=== PATIENT | female | born 1985 | race Caucasian/White ===

== ENCOUNTER 2018-02-02 20:21 | Emergency (ER) | payer MEDICAID ==
[2016-07-08 13:58] VITALS: BMI 28.4
--- NOTE | 2018-02-02 22:24 | OBHP ---
Datetime: 02/02/2018 21:19 IP Adm Impression: Term, intrauterine Admit Comment, IP Provider: 32 yo with IUP at 40+6 weeks gestational age presented to [facility] with complaints of uterine contractions/discomfort. States contractions started about 2 hrs ago, 5 mi n apart. Denies vag bleeding, loss of fluid, reports good movement. ROS: denies headache, dizziness, blurry vision, chest pain, dyspnea, vomiting, burning with urinat ion. States she had diarrhea earlier today. care: Alexsander Dawkins, has appt on Monday 02/05 to see if she will be induced Does not have records with her, lives in [place] and was visiting mother in [place] when ctx started. OBGYNhx: 3 prior full term NVD (2008, 2012, 2014). 1 TOP, 2 SAB. PMH: denies chronic medical problems Soc hx: denies tobacco alcohol drug use Fam hx: mother diabetes 2 Allergies: nkda Meds: PNV SVE: closed, thick, long FHR 130s, reactive A: 32 yo at 40+ weeks, no signs of active labor at this time. Addendum by Dr. Armstrong: patient evaluated independently and I agree with the abov Extremities - PN: Normal Abdomen - PN: Normal Back - PN: Normal Breast - PN: Not Done Lungs - PN: Normal Heart - PN: Normal Thyroid - PN: Not Done Neurologic - PN: Normal HEENT - PN: Normal General - PN: Normal EGA AdmitDate IP: 40.6 Vital Signs Provider: Reviewed; Within Normal Limits IP Chief Complaint: Uterine contractions Dilatation, Provider: 0 Effacement, Provider: thick Station, Provider: high Genitourinary Exam: Normal
--- NOTE | 2018-02-02 22:26 | OBDCSUM ---
Datetime: 02/02/2018 21:31 Discharged to, Provider: Home Follow up at, Provider: Alexsander Dawkins Disch Instr Activity: Normal activity Disch Instr Diet: Regular Discharge Instructions, Provider: Routine instructions given Discharge Time: 02/02/2018 21:31 Follow up in weeks, Provider: 02/05/2018 Disch Referrals: None Contraception discussed, Prov: Yes Discharge Diagnosis Prov Other: false labor
[2018-02-03 01:36] VITALS: BP 115/69; PULSE 79
== END 2018-02-02 21:31 | disposition home or self-care (01) ==
LOC: H.EROB2 20:21
DX: O47.1 False labor at or after 37 completed weeks of gestation (principal); O48.0 Post-term pregnancy; Z3A.40 40 weeks gestation of pregnancy; O26.93 Pregnancy related conditions, unspecified, third trimester; R10.2 Pelvic and perineal pain

== ENCOUNTER 2018-05-06 20:32 | Emergency (ER) | payer SELFPAY ==
[2018-05-06 20:32] VITALS: BMI 29.7
[2018-05-06 20:42] VITALS: RESP 18
--- NOTE | 2018-05-06 21:01 | ED PDOC ---
Upper Extremity Pain/Injury Time Seen by Provider: 05/06/18 20:49 Chief Complaint (Nursing): Finger,Hand,&Wrist Chief Complaint (Provider): Right Wrist Pain History Per: Patient History/Exam Limitations: no limitations Onset/Duration Of Symptoms: Days (x2 weeks), Worse Since (x3 days ago) Current Symptoms Are (Timing): Still Present Additional Complaint(s): 32 year old female presents to the ED for evaluation of right wrist pain. Patient states that two weeks ago she tripped and fell onto her outstretched right hand, but the pain slowly improved. She then notes that three days ago she accidentally struck her right wrist on a sliding door, and has had worsening pain there since. Otherwise, denies numbness and tingling. PMD: none provided Past Medical History Reviewed: Historical Data, Nursing Documentation, Vital Signs Vital Signs: Last Vital Signs Temp 99.1 F 05/06/18 20:40 Pulse 70 05/06/18 20:40 Resp 18 05/06/18 20:40 BP 120/75 05/06/18 20:40 Pulse Ox 99 05/06/18 20:40 - Medical History PMH: No Chronic Diseases - Surgical History Surgical History: No Surg Hx - Family History Family History: States: Unknown Family Hx - Living Arrangements Living Arrangements: With Family - Social History Current smoker - smoking cessation education provided: No Alcohol: None Drugs: Denies - Immunization History Hx Tetanus Toxoid Vaccination: No Hx Influenza Vaccination: No Hx Pneumococcal Vaccination: No - Home Medications Home Medications: Ambulatory Orders Medication Instructions Recorded Acetaminophen [Tylenol 325mg tab] 325 mg PO PRN PRN 07/08/16 Cephalexin [cephalexin] 500 mg PO Q6 #28 cap 07/08/16 Ibuprofen [Motrin] 600 mg PO Q6 #30 tab 07/08/16 Sulfamethoxazole/Trimethoprim 1 tab PO Q12 #14 tab 07/08/16 [Bactrim DS 800 mg-160 mg] Benzocaine/Menthol ASSISTED [Dermoplast 60 ml EXT PRN PRN #1 aero 02/25/18 20%-0.5%] Ferrous Sulfate 325 mg PO BID #60 tablet 02/25/18 Ibuprofen [Motrin Ib] 600 mg PO Q6 PRN 14 Days #30 02/25/18 tablet NS - Allergies Allergies/Adverse Reactions: Allergies Allergy/AdvReac Type Severity Reaction Status Date / Time No Known Allergies Allergy Verified 07/13/15 16:16 Review of Systems ROS Statement: Except As Marked, All Systems Reviewed And Found Negative Musculoskeletal: Positive for: Other (right wrist pain) Neurological: Negative for: Numbness (or tingling) Physical Exam - Reviewed Nursing Documentation Reviewed: Yes Vital Signs Reviewed: Yes - Physical Exam Appears: Positive for: No Acute Distress Skin: Positive for: Normal Color, Warm, Dry Pulses-Radial (L): 2+ Pulses-Radial (R): 2+ Extremity: Positive for: Tenderness (minimal dorsal tenderness to right wrist), Capillary Refill (less than 2 seconds). Negative for: Normal ROM (limited secondary to pain), Deformity, Swelling - ECG O2 Sat by Pulse Oximetry: 99 (RA) Pulse Ox Interpretation: Normal Medical Decision Making Medical Decision Making: Time: 2052 Initial Impression: right wrist pain Initial Plan: --Tylenol 975 mg PO --XR right wrist Wrist wrapped in velcro splint by MAY. Scribe Attestation: Documented by Rachael Delarosa acting as a scribe for Matt Jackson PA-C. Provider Scribe Attestation: All medical record entries made by the Scribe were at my direction and personally dictated by me. I have reviewed the chart and agree that the record accurately reflects my personal performance of the history, physical exam, medical decision making, and the department course for this patient. I have also personally directed, reviewed, and agree with the discharge instructions and disposition. Disposition - Clinical Impression Clinical Impression: Wrist sprain - Patient ED Disposition Is Patient to be Admitted: No - Disposition Referrals: Mariza Hudson MD [Staff Provider] - Andrew Matias MD [Medical Doctor] - Disposition: Routine/Home Disposition Time: 21:20 Condition: STABLE Additional Instructions: RANDI FERNANDO, thank you for letting us take care of you today. Your provider was Mary Lane MD and you were treated for RT WRIST PAIN. The emergency medical care you received today was directed at your acute symptoms. If you were prescribed any medication, please fill it and take as directed. It may take several days for your symptoms to resolve. Return to the Emergency Department if your symptoms worsen, do not improve, or if you have any other problems. Please contact your doctor or call one of the physicians/clinics you have been referred to that are listed on the Patient Visit Information form that is included in your discharge packet. Bring any paperwork you were given at discharge with you along with any medications you are taking to your follow up visit. Our treatment cannot replace ongoing medical care by a primary care provider outside of the emergency department. Thank you for allowing the [facility] team to be part of your care today. If you had an X-Ray or CT scan: A Radiologist will review the ED reading if any change in treatment is needed we will contact you. If you had a blood, urine, or wound culture: It will take several days for the results, if any change in treatment is needed we will contact you. If you had an STI test: It will take 48 hours for the results. Please call after 1 week if you have not heard back. Instructions: Wrist Sprain (DC) Forms: [facility] (Armenian) Print Language: GREENLANDIC
[2018-05-06 21:39] VITALS: BP 118/75; PULSE 78; TEMP 98
--- NOTE | 2018-05-07 09:14 | RAD ---
Date of service: 05/06/2018 PROCEDURE: Right Wrist Radiographs. HISTORY: trauma COMPARISON: None. FINDINGS: BONES: No acute fracture or destructive bony lesion identified. JOINTS: Normal. No dislocation. SOFT TISSUES: Normal. OTHER FINDINGS: None. IMPRESSION: Unremarkable right wrist radiographs.
[2018-05-07 12:50] VITALS: O2SAT 99
== END 2018-05-06 21:37 | disposition home or self-care (01) ==
LOC: H.ER 20:32
DX: S63.501A Unspecified sprain of right wrist, initial encounter (principal); W19.XXXA Unspecified fall, initial encounter; Y92.89 Other specified places as the place of occurrence of the external cause

== ENCOUNTER 2018-09-03 23:10 | Emergency (ER) | payer MEDICAID ==
[2018-09-03 23:10] VITALS: BMI 29.7
[2018-09-03 23:17] VITALS: BP 131/81; PULSE 76; RESP 18; TEMP 98.3; O2SAT 99
--- NOTE | 2018-09-03 23:36 | ED PDOC ---
HPI: CCC, URI, Sore Throat Time Seen by Provider: 09/03/18 23:30 Chief Complaint (Nursing): ENT Problem Chief Complaint (Provider): bilateral ear pain History Per: Patient (32 y/o female here with bilateral ear pain worsening after using over the counter ear drops. Denies any swimming. Denies any fevers/chills.) Past Medical History Reviewed: Historical Data, Nursing Documentation, Vital Signs Vital Signs: Last Vital Signs Temp 98.3 F 09/03/18 23:15 Pulse 76 09/03/18 23:15 Resp 18 09/03/18 23:15 BP 131/81 09/03/18 23:15 Pulse Ox 99 09/03/18 23:15 - Medical History PMH: Denies: Depression, Diabetes, HTN - Family History Family History: States: Unknown Family Hx - Immunization History Hx Tetanus Toxoid Vaccination: No Hx Influenza Vaccination: No Hx Pneumococcal Vaccination: No - Home Medications Home Medications: Ambulatory Orders Medication Instructions Recorded Acetaminophen [Tylenol 325mg tab] 325 mg PO PRN PRN 07/08/16 Cephalexin [cephalexin] 500 mg PO Q6 #28 cap 07/08/16 Ibuprofen [Motrin] 600 mg PO Q6 #30 tab 07/08/16 Sulfamethoxazole/Trimethoprim 1 tab PO Q12 #14 tab 07/08/16 [Bactrim DS 800 mg-160 mg] Benzocaine/Menthol RETIREMENT [Dermoplast 60 ml EXT PRN PRN #1 aero 02/25/18 20%-0.5%] Ferrous Sulfate 325 mg PO BID #60 tablet 02/25/18 Ibuprofen [Motrin Ib] 600 mg PO Q6 PRN 14 Days #30 02/25/18 tablet NS Ciprofloxacin/Dexamethasone 4 drop AU BID #1 bottle 09/03/18 [Ciprodex Otic] - Allergies Allergies/Adverse Reactions: Allergies Allergy/AdvReac Type Severity Reaction Status Date / Time No Known Allergies Allergy Verified 07/13/15 16:16 Review of Systems ROS Statement: Except As Marked, All Systems Reviewed And Found Negative ENT: Positive for: Ear Pain Physical Exam - Reviewed Nursing Documentation Reviewed: Yes Vital Signs Reviewed: Yes - Physical Exam Appears: Positive for: Well, Non-toxic, No Acute Distress Head Exam: Positive for: ATRAUMATIC, NORMAL INSPECTION, NORMOCEPHALIC Skin: Positive for: Normal Color, Warm, DRY Eye Exam: Positive for: EOMI, Normal appearance, PERRL ENT: Positive for: TM Is/Are (bilateral ear canal with dry/scaly skin. No signs of exudate. TM wnl) Neck: Positive for: Normal, Painless ROM Cardiovascular/Chest: Positive for: Regular Rate, Rhythm Respiratory: Positive for: CNT, Normal Breath Sounds Gastrointestinal/Abdominal: Positive for: Normal Exam, Soft Back: Positive for: Normal Inspection Extremity: Positive for: Normal ROM Neurologic/Psych: Positive for: Alert, Oriented - ECG O2 Sat by Pulse Oximetry: 99 Disposition - Clinical Impression Clinical Impression: Otitis externa, Dermatitis - Patient ED Disposition Is Patient to be Admitted: No - Disposition Referrals: Austin Kirkpatrick MD [Staff Provider] - Disposition: Routine/Home Disposition Time: 23:37 Condition: FAIR Prescriptions: Ciprofloxacin/Dexamethasone [Ciprodex Otic] 4 drop AU BID #1 bottle Instructions: Outer Ear Infection (DC), Eczema (Atopic Dermatitis) (DC) Forms: [facility] ED School/Work Excuse
== END 2018-09-03 23:50 | disposition home or self-care (01) ==
LOC: H.ER 23:10
DX: H60.93 Unspecified otitis externa, bilateral (principal); L30.9 Dermatitis, unspecified